=== PATIENT | female | born 1975 | race Caucasian/White ===

== ENCOUNTER 2016-11-25 22:07 | Emergency (ER) | payer OTHER ==
[~2016-11-25] VITALS: Ht 162.6 cm; Wt 90.0 kg
[2016-11-25 22:25] VITALS: BP 140/94; PULSE 128; RESP 22; TEMP 98.9; O2SAT 96
--- NOTE | 2016-11-25 23:02 | PD ---
HPI Chief Complaint: Psychiatric Symptoms Time Seen by Provider: 22:57 Travel History International Travel<30 days: No Contact w/Intl Traveler<30days: No Traveled to known affect area: No History of Present Illness HPI Patient comes in under police escort under a [place] act for allegedly making suicidal post on [employer]. Patient denies this. Patient denies any homicidal or suicidal ideations. Patient states that she has had thoughts of suicide in the past while she was going through her divorce 3 years ago. Denies any attempts at that time. Patient reports 15 years ago she did attempt to harm herself by overdosing on pills. Patient states she is currently in therapy, just got back from vacation, and has been feeling very well. Patient only concern is her children at home. Denies any medical concerns at this time. States she just saw her primary care doctor and is scheduled to get blood work done. Denies any chest pain, shortness breath, fevers, abdominal pain, or . PFSH Past Medical History Medical History: Denies Significant Hx Diabetes: No Diminished Hearing: No Immunizations Current: Yes Tetanus Vaccination: Unknown ?: Not : 3 Para: 2 : 1 Past Surgical History Section: Yes Hysterectomy: Yes Social History Alcohol Use: Yes (occasionally) Tobacco Use: No Substance Use: No Allergies-Medications (Allergen,Severity, Reaction): Coded Allergies: Sudafed (Verified Allergy, Severe, shakes, 06/16/13) Sulfa (Verified Allergy, Severe, hives, 06/16/13) Reported Meds & Prescriptions Reported Meds & Active Scripts Active No Active Prescriptions or Reported Medications Review of Systems Except as stated in HPI: all other systems reviewed are Neg Physical Exam Narrative GENERAL: Well-developed, overly nourished, in no acute distress, and non-ill appearing. SKIN: Focused skin assessment warm and dry. HEAD: Atraumatic. Normocephalic. EYES: Pupils equal and round. EOMI. No scleral icterus. No injection or drainage. ENT: No nasal bleeding or discharge. Mucous membranes pink and moist. NECK: Trachea midline. Supple. No nuclear rigidity. CARDIOVASCULAR: Regular rate and rhythm. No murmur appreciated. RESPIRATORY: No accessory muscle use. No respiratory distress. Clear to auscultation. Breath sounds equal bilaterally. MUSCULOSKELETAL: No obvious deformities. No clubbing. No cyanosis. No edema. Full range of motion. NEUROLOGICAL: Awake and alert. No obvious cranial nerve deficits. Motor grossly within normal limits. Normal speech. PSYCHIATRIC: Appropriate mood and affect; insight and judgment normal. Data Data Last Documented VS Vital Signs Date Time Temp Pulse Resp B/P Pulse Ox O2 Delivery O2 Flow Rate FiO2 11/25/16 22:25 98.9 128 22 140/94 96 Orders Complete Blood Count With Diff (11/25/16 22:34) Comprehensive Metabolic Panel (11/25/16 22:34) Ed Urine Pregnancytest Poc (11/25/16 22:34) Psych Screen (11/25/16 22:34) Drug Screen, Random Urine (11/25/16 22:34) Alcohol (Ethanol) (11/25/16 22:34) Salicylates (Aspirin) (11/25/16 22:34) Tylenol (Acetaminophen) (11/25/16 22:34) Urinalysis - C+S If Indicated (11/25/16 23:04) Labs Laboratory Tests Test 11/25/16 23:20 White Blood Count 7.1 TH/MM3 Red Blood Count 4.78 MIL/MM3 Hemoglobin 13.7 GM/DL Hematocrit 41.5 % Mean Corpuscular Volume 86.8 FL Mean Corpuscular Hemoglobin 28.6 PG Mean Corpuscular Hemoglobin 32.9 % Concent Red Cell Distribution Width 12.8 % Platelet Count 261 TH/MM3 Mean Platelet Volume 8.0 FL Neutrophils (%) (Auto) 71.4 % Lymphocytes (%) (Auto) 22.2 % Monocytes (%) (Auto) 4.7 % Eosinophils (%) (Auto) 1.3 % Basophils (%) (Auto) 0.4 % Neutrophils # (Auto) 5.1 TH/MM3 Lymphocytes # (Auto) 1.6 TH/MM3 Monocytes # (Auto) 0.3 TH/MM3 Eosinophils # (Auto) 0.1 TH/MM3 Basophils # (Auto) 0.0 TH/MM3 CBC Comment DIFF FINAL Differential Comment Urine Color YELLOW Urine Turbidity HAZY Urine pH 5.5 Urine Specific [place] 1.017 Urine Protein TRACE mg/dL Urine Glucose (UA) NEG mg/dL Urine Ketones NEG mg/dL Urine Occult Blood NEG Urine Nitrite NEG Urine Bilirubin NEG Urine Urobilinogen LESS THAN 2.0 MG/DL Urine Leukocyte Esterase NEG Urine RBC LESS THAN 1 /hpf Urine WBC 1 /hpf Urine Squamous Epithelial 3 /hpf Cells Urine Transitional Epithelial <1 /hpf Cells Urine Hyaline Casts 5 /lpf Urine Mucus FEW /lpf Microscopic Urinalysis Comment CULT NOT INDICATED Sodium Level 138 MEQ/L Potassium Level 4.2 MEQ/L Chloride Level 106 MEQ/L Carbon Dioxide Level 25.3 MEQ/L Anion Gap 7 MEQ/L Blood Urea Nitrogen 15 MG/DL Creatinine 0.73 MG/DL Estimat Glomerular Filtration 87 ML/MIN Rate Random Glucose 123 MG/DL Calcium Level 8.8 MG/DL Total Bilirubin 0.2 MG/DL Aspartate Amino Transf 14 U/L (AST/SGOT) Alanine Aminotransferase 23 U/L (ALT/SGPT) Alkaline Phosphatase 65 U/L Total Protein 7.3 GM/DL Albumin 3.8 GM/DL Salicylates Level LESS THAN 1.7 MG/DL Urine Opiates Screen NEG Acetaminophen Level 8.8 MCG/ML Urine Barbiturates Screen NEG Urine Amphetamines Screen NEG Urine Benzodiazepines Screen NEG Urine Cocaine Screen NEG Urine Cannabinoids Screen NEG Ethyl Alcohol Level 54 MG/DL MDM Medical Decision Making Medical Screen Exam Complete: Yes Emergency Medical Condition: Yes Differential Diagnosis Homicidal, suicidal, electrolyte abnormality, alcohol intoxication, other Narrative Course Patient was seen and examined. Labs were obtained and reviewed. Patient medically cleared for further treatment and evaluation by psych. Final disposition per psych. Diagnosis Primary Impression: Medical clearance for psychiatric admission Scripts No Active Prescriptions or Reported Meds Condition: Stable Constantino Siegel Nov 25, 2016 23:02
[2016-11-25 23:46] LABS: AUTOMATED NEUTROPHIL # 5.1 TH/MM3 (1.8-7.7); BASOPHIL % 0.4 % (0.0-2.0); EOSINOPHIL # 0.1 TH/MM3 (0-0.4); EOSINOPHIL % 1.3 % (0.0-4.0); HEMATOCRIT 41.5 % (35.0-46.0); HEMO FLAGS DIFF FINAL; LYMPH % 22.2 % (9.0-44.0); LYMPHOCYTE # 1.6 TH/MM3 (1.0-4.8); MEAN CELL VOLUME 86.8 FL (80.0-100.0); MEAN CORPUSCULAR HEMOGLOBIN 28.6 PG (27.0-34.0); MEAN CORPUSCULAR HGB CONC 32.9 % (32.0-36.0); MONO % 4.7 % (0.0-8.0); NEUT % 71.4 % (16.0-70.0); PLATELET COUNT 261 TH/MM3 (150-450); RED BLOOD COUNT 4.78 MIL/MM3 (4.00-5.30); RED CELL DISTRIBUTION WIDTH 12.8 % (11.6-17.2); WHITE BLOOD COUNT 7.1 TH/MM3 (4.0-11.0)
[2016-11-25 23:59] LABS: AMPHETAMINE, URINE NEG (NEG); BARBITURATES, URINE NEG (NEG)
[2016-11-26] VITALS: BP 132/88; PULSE 98; RESP 20; O2SAT 98
[2016-11-26 00:01] LABS: COCAINE, URINE NEG (NEG)
[2016-11-26 00:02] LABS: BLOOD, URINE NEG (NEG); COMMENT (UR) CULT NOT INDICATED; CULTURE IF INDICATED CULT NOT INDICATED; GLUCOSE,URINE NEG (NEG); HYALINE CAST, URINE 5 /lpf (RARE); KETONE, URINE NEG (NEG); MUCUS URINE FEW /lpf (OCC); NITRITE,URINE NEG (NEG); PH, URINE 5.5 (5.0-8.5); SQUAMOUS EPITHELIAL CELL URINE 3 /hpf (0-5); TRANSITIONAL EPI CELLS, URINE <1 /hpf; URINE COLOR YELLOW (YELLW/STRAW)
[2016-11-26 00:10] LABS: ACETAMINOPHEN 8.8 MCG/ML (10.0-30.0); ALT (GPT) 23 U/L (10-53)
[2016-11-26 00:12] LABS: ALKALINE PHOSPHATASE 65 U/L (45-117); TOTAL BILIRUBIN ADULT 0.2 MG/DL (0.2-1.0)
[2016-11-26 00:13] LABS: ANION GAP 7 MEQ/L (5-15); AST (GOT) 14 U/L (15-37); BICARBONATE 25.3 MEQ/L (21.0-32.0); BLOOD UREA NITROGEN 15 MG/DL (7-18); CHLORIDE 106 MEQ/L (98-107); GLOMERULAR FILTRATION RATE 87 ML/MIN (>89); POTASSIUM 4.2 MEQ/L (3.5-5.1); SODIUM (NA) 138 MEQ/L (136-145)
[2016-11-26 04:48] VITALS: BP 107/65; PULSE 86; RESP 18; O2SAT 98
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
== END 2016-11-26 08:38 | disposition home or self-care (01) ==
LOC: NEPD 22:07
DX: R45.851 Suicidal ideations (principal); Z88.2 Allergy status to sulfonamides; Z88.8 Allergy status to other drugs, medicaments and biological substances
CPT/HCPCS: 80053; 80307; 81001; 84703; 85025; 99284